=== PATIENT | female | born 1970 | race African-American/Black ===

== ENCOUNTER 2021-12-21 16:48 | Emergency (ER) | payer BC, OTHER ==
[~2021-12-21] VITALS: Ht 160 cm; Wt 90.0 kg
[2021-12-21] MEDS ORDERED: BACITRACIN ZINC OINT UDPKT TOP ONE (17:15)
[2021-12-21] MEDS ORDERED: HYDROCODONE/ACETAMINOPHEN 5/325MG TABLET PO ONE (20:15)
[2021-12-21] MEDS ORDERED: TETANUS, DIPHTHERIA, PERTUSSIS VAC/PF 0.5ML (>10YR OLD) IM ONE (20:15)
[2021-12-21] MEDS ORDERED: IBUP-2029 MT (21:04)
[2021-12-21 22:12] VITALS: BP 145/92
== END 2021-12-21 22:14 | disposition home or self-care (01) ==
LOC: ER 16:48
DX: M25.561 Pain in right knee (principal); M25.562 Pain in left knee
CPT/HCPCS: 73130; 73562; 90471; 90715; 99284